=== PATIENT | female | born 2000 | race Caucasian/White ===

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

== ENCOUNTER 2021-09-28 23:29 | Emergency (ER) | payer BC, OTHER ==
[2021-09-29 03:09] VITALS: BP 137/85; PULSE 120; RESP 18; TEMP 98.6
[2021-09-29] MEDS ORDERED: ACETAMINOPHEN TAB 500 MG TAB PO STA (03:10)
--- NOTE | 2021-09-29 04:05 | XR ---
EXAM: XR Chest, 2 Views CLINICAL HISTORY: ITS.REASON XR Reason: cough TECHNIQUE: Frontal and lateral views of the chest. COMPARISON: December 29, 2018 FINDINGS: Lungs: Unremarkable. No infiltration, atelectasis or mass density. Pleural space: Unremarkable. No pneumothorax. No pleural fluid. Heart: Unremarkable. No cardiomegaly. Mediastinum: Unremarkable. Bones/joints: Unremarkable. No acute abnormalities. IMPRESSION: Negative chest x-rays.
[2021-09-29] MEDS ORDERED: AZITHROMYCIN 500 MG TAB PO STA (04:56)
[2021-09-29] MEDS ORDERED: BENZONATATE 100 MG CAP PO STA (04:56)
[2021-09-29] MEDS ORDERED: PSEUDOEPHEDRINE 12HR 120 MG TABLET.ER PO STA (04:58)
--- NOTE | 2021-09-29 05:01 | ED ---
URI HPI - General Chief Complaint: Upper Respiratory Infection Stated Complaint: Cough, Headache Time Seen by Provider: 09/29/21 04:11 Source: patient, RN notes reviewed, old records reviewed Mode of arrival: ambulatory Limitations: no limitations - History of Present Illness Initial Comments: This is a 21-year-old female to the emergency department for evaluation. Patient has a cough congestion persistent. Patient admits to not feeling well. Denying any other complaints no travel history no sick contacts no other significant symptoms. MD Complaint: fever, cough, sore throat, nasal congestion, sinus pain -: days(s) Severity: moderate Severity scale (1-10): 4 Quality: burning, sharp Consistency: intermittent Improves With: nothing Worsens With: nothing Context: sick contacts Associated Symptoms: chills, myalgias, cough, nausea, ear pain Treatments Prior to Arrival: none - Related Data Home Medications Medication Instructions Recorded Confirmed Albuterol Sulfate [Proair Hfa] 2 puff INHALATION RT-Q6H PRN 01/03/19 01/03/19 Previous Rx's Medication Instructions Recorded Escitalopram [Lexapro] 15 mg PO DAILY 28 Days tab 01/09/19 Mirtazapine [Remeron] 15 mg PO HS 28 Days tab 01/09/19 Nicotine Gum (Polacrilex) 2 mg BUCCAL Q4HR PRN 14 Days gum 01/09/19 [Nicorette] Albuterol Sulfate [Proair Hfa] 1 - 2 puff INHALATION Q4H PRN #8.5 09/29/21 gm Azithromycin [Zithromax] 500 mg PO DAILY #5 tab 09/29/21 Benzonatate [Tessalon Perles] 100 mg PO TID PRN #20 capsule 09/29/21 Allergies Allergy/AdvReac Type Severity Reaction Status Date / Time No Known Allergies Allergy Verified 09/29/21 03:08 Review of Systems ROS Statement: Those systems with pertinent positive or pertinent negative responses have been documented in the HPI. ROS Other: All systems not noted in ROS Statement are negative. Past Medical History Past Medical History: Asthma History of Any Multi-Drug Resistant Organisms: None Reported Past Surgical History: Adenoidectomy Additional Past Surgical History / Comment(s): tear duct surgery, Past Psychological History: Anxiety Smoking Status: Never smoker Past Alcohol Use History: None Reported Past Drug Use History: Marijuana General Exam General appearance: alert, in no apparent distress Head exam: Present: atraumatic, normocephalic, normal inspection Eye exam: Present: normal appearance, PERRL, EOMI. Absent: scleral icterus, conjunctival injection, periorbital swelling ENT exam: Present: normal exam, mucous membranes moist Neck exam: Present: normal inspection. Absent: tenderness, meningismus, lymphadenopathy Respiratory exam: Present: normal lung sounds bilaterally. Absent: respiratory distress, wheezes, rales, rhonchi, stridor Cardiovascular Exam: Present: normal rhythm, tachycardia, normal heart sounds. Absent: systolic murmur, diastolic murmur, rubs, gallop, clicks GI/Abdominal exam: Present: soft, normal bowel sounds. Absent: distended, tenderness, guarding, rebound, rigid Extremities exam: Present: normal inspection, full ROM, normal capillary refill. Absent: tenderness, pedal edema, joint swelling, calf tenderness Back exam: Present: normal inspection Neurological exam: Present: alert, oriented X3, CN II-XII intact Psychiatric exam: Present: normal affect, normal mood Skin exam: Present: warm, dry, intact, normal color. Absent: rash Course Vital Signs 09/29/21 03:07 Temperature 98.6 F Pulse Rate 120 H Respiratory 18 Rate Blood Pressure 137/85 O2 Sat by Pulse 99 Oximetry - Reevaluation(s) Reevaluation #1: 09/29/21 medical record is reviewed Reevaluation #2: 09/29/21 Patient informed results and questions answered Medical Decision Making - Medical Decision Making 21 female to the emergency department for cough congestion likely bronchitis. Imaging and testing are negative here in the ER she can be discharged home - Lab Data Lab Results 09/29/21 09/29/21 Range/Units 03:09 03:09 Coronavirus (PCR) Not Detected (Not Detectd) Influenza Type A RNA Not Detected (Not Detectd) Influenza Type B (PCR) Not Detected (Not Detectd) - Radiology Data Radiology results: report reviewed (Chest x-rays negative for acute disease), image reviewed Disposition Clinical Impression: Acute upper respiratory infection, Bronchitis Disposition: HOME SELF-CARE Condition: Good Instructions (If sedation given, give patient instructions): Upper Respiratory Infection (ED) Prescriptions: Albuterol Sulfate [Proair Hfa] 1 - 2 puff INHALATION Q4H PRN #8.5 gm PRN Reason: Shortness Of Breath Benzonatate [Tessalon Perles] 100 mg PO TID PRN #20 capsule PRN Reason: Cough Azithromycin [Zithromax] 500 mg PO DAILY #5 tab Is patient prescribed a controlled substance at d/c from ED?: No Referrals: None,Stated [Primary Care Provider] - 1-2 days Time of Disposition: 06:20
== END 2021-09-29 06:38 | disposition home or self-care (01) ==
LOC: EC 23:29
DX: J40 Bronchitis, not specified as acute or chronic (principal); J06.9 Acute upper respiratory infection, unspecified; F41.9 Anxiety disorder, unspecified; F12.90 Cannabis use, unspecified, uncomplicated; Z20.822 Contact with and (suspected) exposure to COVID-19; Z79.51 Long term (current) use of inhaled steroids; Z79.899 Other long term (current) drug therapy
CPT/HCPCS: 71046; 87502; 87635; 99283